=== PATIENT | female | born 1985 | race Caucasian/White ===

== ENCOUNTER 2017-09-04 07:59 | Emergency (ER) | payer SELFPAY ==
[~2017-09-04] VITALS: Ht 154.9 cm; Wt 77.1 kg
[~2017-09-04 07:59] MED LIST: AMOX875 PO; AZIT500 PO; BIRTH CONTROL PILLS; CEPH500 PO; Cleocin HCl150 MG PO; Naprosyn500 MG PO; OXYACE5T PO; PROACE100 PO; PROM25 PO; Percocet 5-3251 EACH PO; RXANTBENOT AU; RXPROACE PO; SULTRIDS PO; Zithromax250 MG PO; [UNRECOGNIZED DRUG - CODE]
[2017-09-04] MEDS ORDERED: Zofran Odt4 MG SL (08:26)
[2017-09-04] MEDS ORDERED: Cleocin HCl300 MG PO (08:26)
== END 2017-09-04 08:35 | disposition home or self-care (01) ==
LOC: ER 07:59
DX: K04.7 Periapical abscess without sinus (principal); Z88.0 Allergy status to penicillin; Z88.5 Allergy status to narcotic agent; Z88.1 Allergy status to other antibiotic agents; F17.210 Nicotine dependence, cigarettes, uncomplicated
CPT/HCPCS: 99283

== ENCOUNTER 2019-08-20 21:10 | Emergency (ER) | payer OTHER ==
[~2019-08-20] VITALS: Ht 157.5 cm; Wt 85.7 kg
[~2019-08-20 21:10] MED LIST changes: +Cleocin HCl300 MG PO; +Zofran Odt4 MG SL
[2019-08-20 23:44] LABS: Source, Urine Clean Catch
[2019-08-20 23:46] LABS: Appearance, Urine Hazy (Clear); Bilirubin, Urine Neg (Neg); Blood, Urine 2+ (Neg); Color, Urine Amber (P-Yellow); Glucose Qualitative, Urine Neg (Neg); Ketones, Urine 3+ (Neg); Leukocyte Esterase, Urine 1+ (Neg); Nitrite, Urine Neg (Neg); Protein, Urine 1+ (Neg); Urobilinogen, Urine 2+ (Normal)
[2019-08-21 00:11] LABS: Amorphous Light (0-Heavy); Bacteria Mod /hpf; Mucus Light (0-Heavy); Squamous Epithelial Cells Many /hpf (Few); White Blood Cells, Urine 0-2 /hpf (0-5)
== END 2019-08-21 00:39 | disposition home or self-care (01) ==
LOC: ER 21:10
PROVIDERS: Emergency Medicine
DX: O99.89 Other specified diseases and conditions complicating pregnancy, childbirth and the puerperium (principal); R10.9 Unspecified abdominal pain; M54.5 Low back pain; O99.331 Smoking (tobacco) complicating pregnancy, first trimester; F17.200 Nicotine dependence, unspecified, uncomplicated; Z88.0 Allergy status to penicillin; Z88.1 Allergy status to other antibiotic agents; Z88.5 Allergy status to narcotic agent; Z3A.25 25 weeks gestation of pregnancy
CPT/HCPCS: 76705; 81001; 87086; 99284-25

== ENCOUNTER 2019-12-02 19:43 | Inpatient (IN) | payer OTHER ==
[~2019-12-02] VITALS: Ht 154.9 cm; Wt 90.7 kg
[2019-12-02] MEDS ORDERED: FAMO20 PO (20:14)
[2019-12-02] MEDS ORDERED: METO10 PO (20:15)
[2019-12-02] MEDS ORDERED: PRENATAL TABLE1 EAC2 PO (20:16)
[2019-12-02 21:23] LABS: BASOPHILS ABSOLUTE AUTO 0.04 K/mm3 (0.00-0.23); BASOPHILS PERCENT AUTO 0 % (0-2); EOSINOPHILS ABSOLUTE AUTO 0.11 K/mm3 (0.00-0.68); EOSINOPHILS PERCENT AUTO 1 % (0-6); Hemoglobin 11.1 g/dL (11.5-16.0); IMMATURE GRAN ABSOLUTE AUTO 0.04 K/mm3 (0.00-0.10); IMMATURE GRAN PERCENT AUTO 0 % (0-1); LYMPHOCYTES ABSOLUTE AUTO 1.97 K/mm3 (0.84-5.20); LYMPHOCYTES PERCENT AUTO 20 % (21-46); MONOCYTES ABSOLUTE AUTO 0.87 K/mm3 (0.16-1.47); MONOCYTES PERCENT AUTO 9 % (4-13); Mean Corpuscular HGB Conc 33.6 g/dL (31.5-36.5); Mean Corpuscular Volume 92 fL (80-100); Mean Platelet Volume 12.4 fL (9.1-12.4); NEUTROPHILS ABSOLUTE AUTO 7.09 K/mm3 (1.96-9.15); NEUTROPHILS PERCENT AUTO 70 % (41-73); Platelet Count 246 K/mm3 (150-400); RDW Standard Deviation 43.9 fL (35.1-46.3); Red Blood Cell Count 3.58 M/mm3 (3.80-5.20); White Blood Cell Count 10.12 K/mm3 (4.00-11.30)
--- NOTE | 2019-12-03 16:46 | NUR ---
ASSUMED CARE FROM GAEL VILLASEÑOR.
--- NOTE | 2019-12-03 19:40 | NUR ---
PT WOULD LIKE "TO RIDE IT OUT" WHEN ASKED IF SHE WOULD LIKE TO TRY PERCOCET. KNOWS TO CALL RN IF PAIN BECOMES UNMANAGEABLE FOR HER AND WE COULD TRY THE PERCOCET OR I COULD CALL CNM FOR FURTHER ORDERS. AGREEABLE TO PLAN.
[2019-12-04 05:24] LABS: Hematocrit 29.7 % (33.0-51.0); Hemoglobin 9.7 g/dL (11.5-16.0); Mean Corpuscular HGB 30.7 pg (26.0-34.0); Mean Corpuscular HGB Conc 32.7 g/dL (31.5-36.5); Mean Corpuscular Volume 94 fL (80-100); Mean Platelet Volume 12.2 fL (9.1-12.4); Platelet Count 208 K/mm3 (150-400); RDW Coefficient Variation 13.1 % (11.7-14.2); Red Blood Cell Count 3.16 M/mm3 (3.80-5.20); White Blood Cell Count 10.01 K/mm3 (4.00-11.30)
[2019-12-04] MEDS ORDERED: IBUP800 PO (14:46)
--- NOTE | 2019-12-04 15:32 | NUR ---
DISCHARGE INSTRUCTIONS GIVEN TO AND REVIEWED WITH PATIENT AND ALL QUESTIONS ANSWERED. PT DENIES ANY FURTHER QUESTIONS OR CONCERNS AT THIS TIME. ID BANDS MATCHED WITH AND WRITTEN PRESCRIPTIONS PROVIDED TO PATIENT.
== END 2019-12-04 16:30 | disposition home or self-care (01) | DRG 807 ==
LOC: OBS 19:43 → BC 19:44 → OBS 19:50 → BC 19:51
PROVIDERS: ADMIT Advanced Practice Midwife
PROC: 3E0P7VZ Introduction of Hormone into Female Reproductive, Via Natural or Artificial Opening (ICD-10-PCS; 2019-12-02)
PROC: 00HU33Z Insertion of Infusion Device into Spinal Canal, Percutaneous Approach (ICD-10-PCS; 2019-12-02)
PROC: 3E0R3BZ Introduction of Anesthetic Agent into Spinal Canal, Percutaneous Approach (ICD-10-PCS; 2019-12-02)
PROC: 10E0XZZ Delivery of Products of Conception, External Approach (ICD-10-PCS; principal; 2019-12-03)
DX: O69.81X0 Labor and delivery complicated by cord around neck, without compression, not applicable or unspecified (principal); Z37.0 Single live birth; O76 Abnormality in fetal heart rate and rhythm complicating labor and delivery; O99.214 Obesity complicating childbirth; E66.9 Obesity, unspecified
CPT/HCPCS: 36415; 51702; 85025; 85027; 85460; 86850; 86900; 86901; 96372; J1885; J2001; J2590; J2791; J7120; Q0163

== ENCOUNTER 2020-01-08 20:55 | Emergency (ER) | payer OTHER ==
[~2020-01-08] VITALS: Ht 154.9 cm; Wt 78.5 kg
[~2020-01-08 20:55] MED LIST changes: +FAMO20 PO; +IBUP800 PO; +METO10 PO; +PRENATAL TABLE1 EAC2 PO
[2020-01-08] MEDS ORDERED: METO10 (23:56)
[2020-01-09 00:10] LABS: Source, Urine Clean Catch
[2020-01-09 00:14] LABS: BASOPHILS ABSOLUTE AUTO 0.05 K/mm3 (0.00-0.23); BASOPHILS PERCENT AUTO 0 % (0-2); EOSINOPHILS ABSOLUTE AUTO 0.08 K/mm3 (0.00-0.68); EOSINOPHILS PERCENT AUTO 1 % (0-6); Hematocrit 42.2 % (33.0-51.0); Hemoglobin 13.5 g/dL (11.5-16.0); IMMATURE GRAN ABSOLUTE AUTO 0.04 K/mm3 (0.00-0.10); IMMATURE GRAN PERCENT AUTO 0 % (0-1); LYMPHOCYTES ABSOLUTE AUTO 1.22 K/mm3 (0.84-5.20); LYMPHOCYTES PERCENT AUTO 8 % (21-46); MONOCYTES ABSOLUTE AUTO 0.71 K/mm3 (0.16-1.47); MONOCYTES PERCENT AUTO 5 % (4-13); Mean Corpuscular HGB 29.7 pg (26.0-34.0); Mean Corpuscular Volume 93 fL (80-100); Mean Platelet Volume 11.8 fL (9.1-12.4); NEUTROPHILS ABSOLUTE AUTO 12.46 K/mm3 (1.96-9.15); NEUTROPHILS PERCENT AUTO 86 % (41-73); Platelet Count 367 K/mm3 (150-400); RDW Coefficient Variation 12.2 % (11.7-14.2); RDW Standard Deviation 42.2 fL (35.1-46.3); Red Blood Cell Count 4.55 M/mm3 (3.80-5.20); White Blood Cell Count 14.56 K/mm3 (4.00-11.30)
[2020-01-09 00:15] LABS: Blood, Urine 1+ (Neg); Glucose Qualitative, Urine Neg (Neg); Ketones, Urine 3+ (Neg); Leukocyte Esterase, Urine 1+ (Neg); Nitrite, Urine Neg (Neg); Protein, Urine 2+ (Neg); Urobilinogen, Urine 3+ (Normal)
[2020-01-09 00:17] LABS: Appearance, Urine Turbid (Clear); Bilirubin, Urine 2+ (Neg); Color, Urine Orange (P-Yellow)
[2020-01-09 00:21] LABS: Amorphous Heavy (0-Heavy); Bacteria Mod /hpf; Red Blood Cells, Urine 0-2 /hpf (0-2); Squamous Epithelial Cells Mod /hpf (Few); White Blood Cells, Urine 0-2 /hpf (0-5)
[2020-01-09 00:27] LABS: Alanine Aminotransfer (ALT/SGP 74 U/L (12-78); Albumin, Blood 3.7 g/dL (3.4-5.0); Albumin/Globulin Ratio 0.8 (0.8-1.8); Alk Phos 173 U/L (50-136); Anion Gap 6 mmol/L (6-16); Aspartate Aminotrans (AST/SGOT 122 U/L (12-37); Bilirubin, Total 1.1 mg/dL (0.1-1.0); Blood Urea Nitrogen 16 mg/dL (8-24); Bun/Creatinine Ratio 15.7 (12.0-20.0); CO2, Blood 27 mmol/L (21-32); Calcium, Blood 8.8 mg/dL (8.5-10.1); Chloride, Blood 108 mmol/L (98-108); Creatinine, Blood 1.02 mg/dL (0.40-1.00); Globulin, Blood 4.4 g/dL (2.2-4.0); Glomerular Filtration Rate >60 (60-); Glucose, Blood 96 mg/dL (70-99); Magnesium, Blood 2.4 mg/dL (1.6-2.4); Potassium, Blood 3.7 mmol/L (3.5-5.5); Sodium, Blood 141 mmol/L (136-145); Total Protein, Blood 8.1 g/dL (6.4-8.2)
== END 2020-01-09 04:05 | disposition short-term general hospital (02) ==
LOC: ER 20:55
PROVIDERS: Emergency Medicine
DX: K80.50 Calculus of bile duct without cholangitis or cholecystitis without obstruction (principal); F17.200 Nicotine dependence, unspecified, uncomplicated; Z88.0 Allergy status to penicillin; Z88.1 Allergy status to other antibiotic agents; Z88.5 Allergy status to narcotic agent
CPT/HCPCS: 36415; 76705; 80053; 81001; 83690; 83735; 85025; 87086; 96366; 96374; 96375; 96376; 99284-25; J1170; J1885; J2405; J7030; U0002

== ENCOUNTER 2022-01-10 18:35 | Inpatient (IN) | payer OTHER ==
[~2022-01-10 18:35] MED LIST changes: +METO10
[2022-01-10] MEDS ORDERED: ONE-A-DAY PREN1 EAC1 PO (21:48)
[2022-01-10 22:25] LABS: BASOPHILS ABSOLUTE AUTO 0.06 K/mm3 (0.00-0.23); BASOPHILS PERCENT AUTO 0 % (0-2); EOSINOPHILS ABSOLUTE AUTO 0.14 K/mm3 (0.00-0.68); EOSINOPHILS PERCENT AUTO 1 % (0-6); Hemoglobin 11.3 g/dL (11.5-16.0); IMMATURE GRAN PERCENT AUTO 1 % (0-1); LYMPHOCYTES ABSOLUTE AUTO 3.18 K/mm3 (0.84-5.20); LYMPHOCYTES PERCENT AUTO 18 % (21-46); MONOCYTES ABSOLUTE AUTO 1.07 K/mm3 (0.16-1.47); MONOCYTES PERCENT AUTO 6 % (4-13); Mean Corpuscular HGB 30.9 pg (26.0-34.0); Mean Corpuscular HGB Conc 34.2 g/dL (31.5-36.5); Mean Corpuscular Volume 90 fL (80-100); Mean Platelet Volume 10.6 fL (9.1-12.4); NEUTROPHILS ABSOLUTE AUTO 13.09 K/mm3 (1.96-9.15); NEUTROPHILS PERCENT AUTO 74 % (41-73); Platelet Count 331 K/mm3 (150-400); RDW Coefficient Variation 13.1 % (11.7-14.2); RDW Standard Deviation 43.5 fL (35.1-46.3); Red Blood Cell Count 3.66 M/mm3 (3.80-5.20); White Blood Cell Count 17.64 K/mm3 (4.00-11.30)
[2022-01-12 05:30] LABS: Hematocrit 29.3 % (33.0-51.0); Hemoglobin 9.6 g/dL (11.5-16.0); Mean Corpuscular HGB 30.6 pg (26.0-34.0); Mean Corpuscular HGB Conc 32.8 g/dL (31.5-36.5); Mean Corpuscular Volume 93 fL (80-100); Mean Platelet Volume 10.4 fL (9.1-12.4); Platelet Count 286 K/mm3 (150-400); RDW Coefficient Variation 13.2 % (11.7-14.2); RDW Standard Deviation 44.8 fL (35.1-46.3); Red Blood Cell Count 3.14 M/mm3 (3.80-5.20); White Blood Cell Count 11.18 K/mm3 (4.00-11.30)
== END 2022-01-12 11:45 | disposition home or self-care (01) | DRG 806 ==
LOC: BC 18:35 → OBS 18:35 → BC 18:47 → OBS 21:20 → BC 21:25
PROVIDERS: ADMIT Advanced Practice Midwife
PROC: 10E0XZZ Delivery of Products of Conception, External Approach (ICD-10-PCS; principal; 2022-01-11)
PROC: 3E0R3BZ Introduction of Anesthetic Agent into Spinal Canal, Percutaneous Approach (ICD-10-PCS; 2022-01-11)
PROC: 10907ZC Drainage of Amniotic Fluid, Therapeutic from Products of Conception, Via Natural or Artificial Opening (ICD-10-PCS; 2022-01-11)
PROC: 3E033VJ Introduction of Other Hormone into Peripheral Vein, Percutaneous Approach (ICD-10-PCS; 2022-01-11)
PROC: 00HU33Z Insertion of Infusion Device into Spinal Canal, Percutaneous Approach (ICD-10-PCS; 2022-01-11)
PROC: 3E0234Z Introduction of Serum, Toxoid and Vaccine into Muscle, Percutaneous Approach (ICD-10-PCS; 2022-01-11)
DX: O24.420 Gestational diabetes mellitus in childbirth, diet controlled (principal); Z16.29 Resistance to other single specified antibiotic; Z37.0 Single live birth; O99.824 Streptococcus B carrier state complicating childbirth; O70.0 First degree perineal laceration during delivery; Z90.49 Acquired absence of other specified parts of digestive tract; Z3A.39 39 weeks gestation of pregnancy; Z88.0 Allergy status to penicillin; Z88.1 Allergy status to other antibiotic agents; Z88.5 Allergy status to narcotic agent; O26.893 Other specified pregnancy related conditions, third trimester; Z67.41 Type O blood, Rh negative; O76 Abnormality in fetal heart rate and rhythm complicating labor and delivery
CPT/HCPCS: 36415; 59025; 82947; 85025; 85027; 85460; 86850; 86900; 86901; 96372; A9270; J1885; J2590; J2791; J3010; J3370; J7060; J7120

== ENCOUNTER → 2023-02-21 | Outpatient (CLI) | payer BC, OTHER ==
[~2023-02-21] MED LIST changes: +ONE-A-DAY PREN1 EAC1 PO
== END | disposition home or self-care (01) ==
LOC: LAB SHORT 13:58 → LAB 13:58
DX: R10.32 Left lower quadrant pain (principal)
CPT/HCPCS: 87086